=== PATIENT | female | born 1995 | race Caucasian/White ===

== ENCOUNTER → 2024-10-01 10:21 | Outpatient (REF) | payer OTHER, SELFPAY | LOC: RAD 10:21 | PROVIDERS: ATTENDING PHYSICIAN Nurse Practitioner Family; FAMILY PHYSICIAN Family Medicine | DX: Z34.90 Encounter for supervision of normal pregnancy, unspecified, unspecified trimester (principal) | CPT/HCPCS: 76801; 76817 ==

== ENCOUNTER → 2024-10-14 08:54 | Outpatient (REF) | payer OTHER, SELFPAY | LOC: PNTC 08:54 | PROVIDERS: ATTENDING PHYSICIAN Student in an Organized Health Care Education/Training Program | DX: O99.619 Diseases of the digestive system complicating pregnancy, unspecified trimester (principal); O10.119 Pre-existing hypertensive heart disease complicating pregnancy, unspecified trimester | CPT/HCPCS: 76801; 76813 ==

== ENCOUNTER → 2024-11-11 07:03 | Outpatient (REF) | payer OTHER, SELFPAY | LOC: PNTC 07:03 | PROVIDERS: ATTENDING PHYSICIAN Student in an Organized Health Care Education/Training Program | DX: O26.832 Pregnancy related renal disease, second trimester (principal); O99.612 Diseases of the digestive system complicating pregnancy, second trimester | CPT/HCPCS: 76805 ==

== ENCOUNTER → 2024-12-08 13:29 | Outpatient (REF) | payer OTHER, SELFPAY | LOC: PNTC 13:29 | PROVIDERS: ATTENDING PHYSICIAN Student in an Organized Health Care Education/Training Program | DX: O99.619 Diseases of the digestive system complicating pregnancy, unspecified trimester (principal); O10.119 Pre-existing hypertensive heart disease complicating pregnancy, unspecified trimester | CPT/HCPCS: 76811 ==

== ENCOUNTER → 2025-02-03 08:59 | Outpatient (REF) | payer OTHER, SELFPAY | LOC: PNTC 08:59 | PROVIDERS: ATTENDING PHYSICIAN Student in an Organized Health Care Education/Training Program | DX: K50.90 Crohn's disease, unspecified, without complications (principal); O99.619 Diseases of the digestive system complicating pregnancy, unspecified trimester | CPT/HCPCS: 76816 ==

== ENCOUNTER → 2025-03-16 09:01 | Outpatient (REF) | payer OTHER, SELFPAY | LOC: PNTC 09:01 | PROVIDERS: ATTENDING PHYSICIAN Student in an Organized Health Care Education/Training Program | DX: K50.90 Crohn's disease, unspecified, without complications (principal) | CPT/HCPCS: 76816 ==

== ENCOUNTER 2025-04-05 17:43 | Observation (INO) | payer OTHER, SELFPAY ==
[2025-04-05 17:49] VITALS: BP 128/90; BMI 27.3
[2025-04-05 18:31] LABS: Urine Albumin 1+ (Neg - Trace); Urine Bilirubin Negative (Negative); Urine Character Clear (Clear); Urine Color Yellow; Urine Glucose Negative (Negative); Urine Ketone Negative (Negative); Urine Leukocyte Negative (Negative); Urine Nitrite Negative (Negative); Urine Occult Blood Negative (Negative); Urine Specific Gravity 1.005 (<1.030); Urine Urobilinogen Negative (Neg - 1+); Urine pH 6.5 (5.0-9.0)
[2025-04-05 18:32] LABS: Hematocrit 33.6 % (37.0-47.0); Hemoglobin 11.8 g/dL (12.0-16.0); Mean Corp Hgb Conc. 35.1 g/dL (33.0-37.0); Mean Corpuscular Hgb 30.9 pg (27.0-31.0); Mean Platelet Volume 10.8 fL (7.4-10.4); Platelet Count 193 10^3/uL (130-400); Red Blood Cell Count 3.82 10^6/uL (4.20-5.40); Red Cell Dist. Width 13.5 % (11.5-14.5); White Blood Cell Count 10.5 10^3/uL (4.8-10.8)
[2025-04-05 18:38] LABS: Urine Squamous Cell >30 /LPF (Few)
[2025-04-05 18:39] LABS: Urine Bacteria Few (Negative); Urine Red Blood Cell 0-2 /HPF (0-2)
[2025-04-05 18:49] LABS: ALT (SGPT) 21 U/L (0-35); AST (SGOT) 32 U/L (14-36); Albumin 4.1 g/dl (3.5-5.0); Alkaline Phosphatase 152 U/L (38-126); Blood Urea Nitrogen 15 mg/dl (7-17); Calcium 10.2 mg/dl (8.4-10.2); Carbon Dioxide 23 mmol/L (22-30); Chloride 105 mmol/L (98-107); Estimated Creatinine Clearance 87 ml/min; Glucose 124 mg/dl (70-99); Potassium 4.1 mmol/L (3.5-5.1); Sodium 135 mmol/L (135-145); Total Bilirubin 0.4 mg/dl (0.2-1.3); Total Protein 7.4 g/dl (6.3-8.2); Uric Acid 6.8 mg/dl (2.5-6.2); eGFR > 60.00
[2025-04-05 18:57] LABS: Protein/creatinine Ratio 0.6; Urine Protein 23 mg/dl
== END 2025-04-05 20:51 | disposition home or self-care (01) ==
LOC: LDRP 17:43
PROVIDERS: ADMITTING PHYSICIAN Obstetrics & Gynecology
DX: O36.8130 Decreased fetal movements, third trimester, not applicable or unspecified (principal); Z3A.37 37 weeks gestation of pregnancy
CPT/HCPCS: 80053; 81003; 81015; 82570; 84156; 84550; 85027; 86850; 86900; 86901; G0378

== ENCOUNTER 2025-04-12 12:37 | Inpatient (IN) | payer OTHER, SELFPAY ==
[2025-04-12 12:42] VITALS: BP 137/94; BMI 26.8
[2025-04-12 13:34] LABS: % Basophils 0.2 % (0-2); % Eosinophils 0.4 % (0-6); % Immature Granulocytes 0.3 % (0-0.5); % Lymphocytes 17.6 % (20.5-51.1); % Monocytes 4.8 % (1.7-9.3); % Neutrophils 76.7 % (42.2-75.2); Absolute Monocytes 0.5 10^3/uL (0.1-0.6); Absolute Neutrophils 8.6 10^3/uL (1.4-6.5); Hematocrit 33.1 % (37.0-47.0); Hemoglobin 11.5 g/dL (12.0-16.0); Mean Corp Hgb Conc. 34.7 g/dL (33.0-37.0); Mean Corpuscular Hgb 30.7 pg (27.0-31.0); Mean Corpuscular Volume 88.3 fL (81.0-99.0); Mean Platelet Volume 10.9 fL (7.4-10.4); Nucleated Red Blood Cells % 0 %; Platelet Count 175 10^3/uL (130-400); Red Blood Cell Count 3.75 10^6/uL (4.20-5.40); Red Cell Dist. Width 13.2 % (11.5-14.5); White Blood Cell Count 11.2 10^3/uL (4.8-10.8)
[2025-04-12 13:50] LABS: ALT (SGPT) 17 U/L (0-35); AST (SGOT) 26 U/L (14-36); Alkaline Phosphatase 160 U/L (38-126); Blood Urea Nitrogen 14 mg/dl (7-17); Calcium 9.5 mg/dl (8.4-10.2); Carbon Dioxide 22 mmol/L (22-30); Chloride 109 mmol/L (98-107); Estimated Creatinine Clearance 86 ml/min; Glucose 91 mg/dl (70-99); Potassium 4.4 mmol/L (3.5-5.1); Sodium 137 mmol/L (135-145); Total Bilirubin 0.2 mg/dl (0.2-1.3); Total Protein 7.2 g/dl (6.3-8.2); eGFR > 60.00
[2025-04-12] MEDS: CYTOTEC 50 MICROGRAM PO (13:58)
[2025-04-12 14:46] LABS: Protein/creatinine Ratio 0.6; Urine Protein 15 mg/dl
[2025-04-12] MEDS: CYTOTEC 25 MICROGRAM PO ×2 (18:02→22:05)
[2025-04-13] MEDS: CYTOTEC 25 MICROGRAM PO (02:42)
[2025-04-13] MEDS: CYTOTEC PO (08:20)
[2025-04-13] MEDS: PITOCIN 30 UNITS/NSS 500 ML IV (09:48)
[2025-04-13] MEDS: SUBLIMAZE 100 MCG EPIDURAL (14:04)
[2025-04-13] MEDS: FENTANYL/BUPIVACAINE 100 EPIDURAL (14:05)
[2025-04-13] MEDS: LR 1000 IV (14:17)
[2025-04-13] MEDS: MOTRIN 600 MG PO (19:34)
[2025-04-13] MEDS: SENOKOT-S 1 TABLET PO (19:35)
[2025-04-14] MEDS: MOTRIN 600 MG PO ×3 (02:38→16:11)
[2025-04-14] MEDS: TYLENOL 650 MG PO ×4 (04:59→16:11)
[2025-04-14 05:30] LABS: Hematocrit 29.9 % (37.0-47.0); Hemoglobin 10.1 g/dL (12.0-16.0)
[2025-04-14] MEDS: PRENATAL PLUS 1 TABLET PO (09:42)
[2025-04-14 14:14] LABS: Syphilis/T. pallidum Ab Reflex Negative (Negative)
== END 2025-04-14 18:18 | disposition home or self-care (01) | DRG 807 ==
LOC: LDRP 12:37
PROVIDERS: Obstetrics & Gynecology; ADMITTING PHYSICIAN Obstetrics & Gynecology; FAMILY PHYSICIAN Family Medicine
PROC: 3E0P7VZ Introduction of Hormone into Female Reproductive, Via Natural or Artificial Opening (ICD-10-PCS; 2025-04-12)
PROC: 10907ZC Drainage of Amniotic Fluid, Therapeutic from Products of Conception, Via Natural or Artificial Opening (ICD-10-PCS; 2025-04-13)
PROC: 10E0XZZ Delivery of Products of Conception, External Approach (ICD-10-PCS; 2025-04-13)
PROC: 0HQ9XZZ Repair Perineum Skin, External Approach (ICD-10-PCS; 2025-04-13)
PROC: 3E0234Z Introduction of Serum, Toxoid and Vaccine into Muscle, Percutaneous Approach (ICD-10-PCS; 2025-04-14)
DX: O13.4 Gestational [pregnancy-induced] hypertension without significant proteinuria, complicating childbirth (principal); Z37.0 Single live birth; O14.04 Mild to moderate pre-eclampsia, complicating childbirth; O70.0 First degree perineal laceration during delivery; Z3A.38 38 weeks gestation of pregnancy; Z23 Encounter for immunization
CPT/HCPCS: 36415; 80053; 82570; 84156; 85014; 85018; 85025; 86780; 86850; 86900; 86901

== ENCOUNTER 2025-04-17 18:29 | Inpatient (IN) | payer OTHER, SELFPAY ==
[2025-04-17 17:02] VITALS: BP 139/97; BMI 23.4
[2025-04-17 17:32] LABS: % Basophils 0.2 % (0-2); % Eosinophils 2.1 % (0-6); % Immature Granulocytes 0.3 % (0-0.5); % Lymphocytes 23.8 % (20.5-51.1); % Neutrophils 67.6 % (42.2-75.2); Absolute Eosinophils 0.2 10^3/uL (0-0.7); Absolute Lymphocytes 2.1 10^3/uL (1.2-3.4); Absolute Monocytes 0.5 10^3/uL (0.1-0.6); Hematocrit 27.7 % (37.0-47.0); Hemoglobin 9.6 g/dL (12.0-16.0); Mean Corp Hgb Conc. 34.7 g/dL (33.0-37.0); Mean Corpuscular Hgb 30.7 pg (27.0-31.0); Mean Corpuscular Volume 88.5 fL (81.0-99.0); Mean Platelet Volume 10.4 fL (7.4-10.4); Nucleated Red Blood Cells % 0 %; Platelet Count 205 10^3/uL (130-400); Red Blood Cell Count 3.13 10^6/uL (4.20-5.40); Red Cell Dist. Width 13.2 % (11.5-14.5); White Blood Cell Count 8.8 10^3/uL (4.8-10.8)
[2025-04-17] MEDS: TYLENOL 1000 MG PO (17:41)
[2025-04-17 17:47] LABS: ALT (SGPT) 39 U/L (0-35); AST (SGOT) 52 U/L (14-36); Albumin 3.5 g/dl (3.5-5.0); Alkaline Phosphatase 101 U/L (38-126); Blood Urea Nitrogen 17 mg/dl (7-17); Calcium 9.1 mg/dl (8.4-10.2); Carbon Dioxide 24 mmol/L (22-30); Chloride 109 mmol/L (98-107); Estimated Creatinine Clearance 100 ml/min; Glucose 82 mg/dl (70-99); Potassium 4.8 mmol/L (3.5-5.1); Sodium 137 mmol/L (135-145); Total Bilirubin 0.5 mg/dl (0.2-1.3); Total Protein 6.7 g/dl (6.3-8.2); eGFR > 60.00
[2025-04-17 17:57] LABS: Protein/creatinine Ratio 1.3; Urine Protein 15 mg/dl
[2025-04-17] MEDS: LR 1000 IV (19:03)
[2025-04-17] MEDS: MAGNESIUM SULFATE 100 IV (19:03)
[2025-04-17] MEDS: MAGNESIUM SULFATE 40 GRAM 1000 IV (19:25)
[2025-04-17] MEDS: MOTRIN 600 MG PO (23:58)
[2025-04-18] MEDS: MOTRIN 600 MG PO (06:30)
[2025-04-18] MEDS: LR 1000 IV (08:00)
[2025-04-18 09:02] LABS: Hematocrit 29.2 % (37.0-47.0); Hemoglobin 10.2 g/dL (12.0-16.0); Mean Corp Hgb Conc. 34.9 g/dL (33.0-37.0); Mean Corpuscular Hgb 30.9 pg (27.0-31.0); Mean Corpuscular Volume 88.5 fL (81.0-99.0); Mean Platelet Volume 10.1 fL (7.4-10.4); Platelet Count 195 10^3/uL (130-400); Red Cell Dist. Width 13.2 % (11.5-14.5); White Blood Cell Count 6.8 10^3/uL (4.8-10.8)
[2025-04-18 09:31] LABS: ALT (SGPT) 34 U/L (0-35); AST (SGOT) 34 U/L (14-36); Albumin 3.4 g/dl (3.5-5.0); Alkaline Phosphatase 117 U/L (38-126); Blood Urea Nitrogen 16 mg/dl (7-17); Calcium 6.4 mg/dl (8.4-10.2); Carbon Dioxide 26 mmol/L (22-30); Chloride 109 mmol/L (98-107); Estimated Creatinine Clearance 100 ml/min; Glucose 82 mg/dl (70-99); Potassium 4.1 mmol/L (3.5-5.1); Sodium 140 mmol/L (135-145); Total Bilirubin 0.2 mg/dl (0.2-1.3); Total Protein 6.4 g/dl (6.3-8.2); eGFR > 60.00
[2025-04-18] MEDS: MAGNESIUM SULFATE 40 GRAM 1000 IV (13:29)
[2025-04-19] MEDS: MOTRIN 600 MG PO (09:07)
[2025-04-19] MEDS: PROCARDIA XL (EXTENDED RELEASE) 30 MG PO (09:07)
--- NOTE | 2025-04-19 10:53 | W.DS.TRANS ---
DC Summary - [employer]
-
Discharge Instructions:
Discharge Diagnosis/Procedures pre-eclampsia
Diet Regular
Activity As tolerated,No strenuous activity
Driving Restrictions Not until seen by your Dr
Bathing Restrictions OK to Shower
Instructions:
Stand-Alone Forms: LDRP Hypertensive Disorders
LDRP Vaginal Delivery
Changes to Home Medications: No
Discharge Medications:
DC Medications w/original date entered in [facility]
prenat.vits,attila,jpg-[id number] 1 tab PO DAILY Supplement 11/20/22
ibuprofen 600 mg tablet 600 mg PO Q6HPRN PRN moderate pain/cramps #45 tabs 04/14/25
nifedipine 30 mg tablet,extended release 30 mg PO DAILY #30 tabs 04/19/25
Home Medication Changes
Pending Results: No
Total time spent discharging patient (in min): 20
== END 2025-04-19 12:51 | disposition home or self-care (01) | DRG 776 ==
LOC: LDRP 18:29
PROVIDERS: Obstetrics & Gynecology; ADMITTING PHYSICIAN Obstetrics & Gynecology
DX: O14.15 Severe pre-eclampsia, complicating the puerperium (principal); D62 Acute posthemorrhagic anemia; K50.90 Crohn's disease, unspecified, without complications
CPT/HCPCS: 80053; 82570; 84156; 85025; 85027

== ENCOUNTER 2025-11-05 20:49 | Emergency (ER) | payer OTHER, SELFPAY ==
[2025-11-05 20:52] VITALS: BP 141/103
--- NOTE | 2025-11-05 22:01 | ED.GENMED ---
History of Present Illness
General
Chief Complaint: Skin Surface Trauma
Time Seen by Provider: 11/05/25 21:30
History of Present Illness
History of Present Illness:
Patt is a 30-year-old female who was emptying her cabinet when glass fell out and she sustained a laceration to her right hand. Wound was cleaned out in triage. Reports tetanus is up-to-date. No other injuries. Offers no other complaints
Phy Exam
General Physical Exam
General Presentation: well appearing and no apparent distress
General Skin: warm and dry
General Habitus: normal
General Mental: alert
General Hydration: appears well hydrated
ENT Exam
ENT Exam: EOMI, pharynx normal, neck supple and normocephalic
Eye Exam
Eye Exam: PERRL, cornea clear and conjunctiva normal
Cardiovascular Exam
Cardiovascular Exam: regular rate/rhythm, no edema, no murmur and normal peripheral pulses
Pulmonary Exam
Pulmonary Exam: lungs clear, no respiratory distress, no rales, no crackles, no rhonchi, no stridor, no wheezing and no cough
Gastrointestinal Exam
Gastrointestinal Exam: normal bowel sounds, non tender, soft, no organomegaly, no pulsatile mass and non distended
Neurological Exam
Neurological Exam: alert, oriented x3, no motor deficits and speech normal
Musculoskeletal Exam
Musculoskeletal Exam: full ROM and no edema
Skin Exam
Skin Exam: normal color, warm/dry, no rash, no petechia and laceration (Over base of right fifth finger)
Psychiatric Exam
Psychiatric Exam: normal mood/affect
Course
Vital Signs
Initial and Last Documented VS:
Initial Vital Signs
Temp Pulse Resp BP Pulse Ox
36.9 C 79 19 141/103 100
11/05/25 20:52 11/05/25 20:52 11/05/25 20:52 11/05/25 20:52 11/05/25 20:52
Last Documented Vital Signs
Temp Pulse Resp BP Pulse Ox
36.9 C 79 19 141/103 100
11/05/25 20:52 11/05/25 20:52 11/05/25 20:52 11/05/25 20:52 11/05/25 22:02
Procedures
Laceration Closure
Right Upper Proximal Fifth Finger:
Status of Wound: clean
Description of Wound Edges: sharp
Preparation: cleaned with saline
Anesthesia: 1% Lidocaine with epi
Revision/Debridement: routine- no revision
Type of Closure: single layer closure
Skin Closure Material: 4-0 nylon
Number of sutures: 2
MDM/Problems Addressed
Differential Diagnosis Includes:
Laceration thoroughly irrigated with saline. Closed with nylon sutures.
*Pulse Oximetry
SaO2: 100
Patient hypoxic: no
*Critical Care Note
Total Time (30-74mins, 75-104mins- exclusive of procedures): Not Applicable
ED Attending Note
-
Portions of this chart may have been created with voice recognition software.� Occasional wrong word or��sound alike� substitutions may have occurred due to the inherent limitations of voice recognition software.
Discharge Plan
Departure
Patient Disposition: Home (Routine Discharge)
Date of Disposition: 11/05/25
Time of Disposition: 21:48
Patient with high blood pressure during this ER visit?: No
Discharge Problem:
Laceration of hand
Instructions: Stitches - ED (DC)
Prescriptions:
No Action
prenat.vits,attila,[id number] Tablet
1 tab PO DAILY
ibuprofen 600 mg Tablet
600 mg PO Q6HPRN PRN (Reason: moderate pain/cramps) Qty: 45 0RF
nifedipine 30 mg Tablet Extended Release
30 mg PO DAILY Qty: 30 1RF
Activity Restrictions/Additional Instructions:
You were seen in the ER for a laceration to your hand. This was repaired with 2 stitches. The stitches will need to come out in 7 to 10 days. Return to the ER or see your primary care physician if you notice any redness around this laceration or
drainage from the wound. You may keep it covered for comfort but do not need to. Avoid submerging the laceration.
Interventions
Interventions:
*General Assessment Last Done: 11/05/25 20:53
*Neglect/Abuse Screening Last Done: 11/05/25 21:32
*ED COVID-19 Vaccine History Last Done: 11/05/25 20:53
*ED Influenza Vaccine History Last Done: 11/05/25 20:53
[facility] Risk Assessment Tool Last Done: 11/05/25 21:32
*Risk Screen - Suicide (C-SSRS) Last Done: 11/05/25 20:53
ED-Skin Assessment Last Done: 11/05/25 21:32
Discharge Date and Time
Print Language: AZERI
== END 2025-11-05 22:13 | disposition home or self-care (01) ==
LOC: EMR 20:49
PROVIDERS: EMERGENCY PHYSICIAN Emergency Medicine; FAMILY PHYSICIAN Family Medicine
DX: S61.411A Laceration without foreign body of right hand, initial encounter (principal); W25.XXXA Contact with sharp glass, initial encounter
CPT/HCPCS: 12001; 99282